=== PATIENT | female | born 1975 | race Caucasian/White ===

== ENCOUNTER 2017-07-08 05:45 | Day surgery (SDC) | payer MEDICAID ==
[~2017-07-08] VITALS: Ht 157.5 cm; Wt 85.3 kg
--- NOTE | ~2017-07-08 | OP ---
PATIENT NAME: KASH LYON MEDICAL RECORD: [id number] :79 LOCATION:D.OPS ADMISSION DATE: SURGEON: CHARLA LEA MD DATE OF OPERATION: 07/08/2017 PREOPERATIVE DIAGNOSES: 1. Internal hemorrhoids. 2. Anal skin tags. POSTOPERATIVE DIAGNOSES: 1. Internal hemorrhoids. 2. Anal skin tags. PROCEDURE: PPH stapled hemorrhoidectomy. SURGEON: Charla Lea MD REPORT OF PROCEDURE: The patient was placed in the jackknife prone position and the perianal region was prepped and draped in sterile fashion. Immediately you could see there were large redundant anal skin tags, especially on the anterior aspect of the anus. As I did a full inspection of the anal vault, there was noted to be internal hemorrhoids, which were not grossly enlarged. The PPH anoscope was then inserted and sutured down on all 4 sides using interrupted 3-0 silks. A 2-0 Prolene was used to make a pursestring just proximal to the dentate line. The PPH stapler was inserted and after we inspected the vaginal wall to assure there was no tenting of the tissues, then the stapler was fired. The patient had a good ring of tissue, which was removed. Staple line was inspected and there was no sign of any surgical bleeding. We irrigated out the anus and assured there was no bleeding. The PPH anoscope was then removed and we inspected the anal skin tags. These had been pulled down nicely with the PPH stapler and were not nearly as redundant as they had been preoperatively. The decision was made to just leave these alone. A piece of Gelfoam dipped in [place] was then placed into the anus and dressing was applied. COMPLICATIONS: None. CONDITION: Stable. ANESTHESIA: General endotracheal. BLOOD LOSS: Minimal. TRANSINT:[id number] Voice Confirmation ID: [id number] DOCUMENT ID: [id number] CHARLA LEA MD at 1031 CC: WILMAR KABA DO [id number] DICTATION DATE: 07/08/17 0922 [employer]MINAL [employer] SUPERVISOR: 07/08/17 1436 [facility] 07/08/17 [place] [address]
[2017-07-08 06:21] LABS: EOSINOPHILS 2.8 % (0-7); HEMOGLOBIN 16.5 g/dL (12-16); IMMATURE GRANULOCYTES 0.4 % (0-5); LYMPHOCYTES 23.5 % (15-50); MCH 31.9 pg (26.0-34.0); MCHC 34.4 g/dL (31.0-37.0); MCV 92.8 fL (80.0-100.0); MEAN PLATELET VOLUME 10.3 fL (7.4-10.4); MONOCYTES 10.1 % (2-11); NEUTROPHILS 62.2 % (40-80); PLATELET COUNT 298 10x3/uL (130-400); RBC 5.17 10x6/uL (4.00-5.40); RDW 12.7 % (11.5-14.5)
[2017-07-08 06:31] LABS: ANION GAP 10.6 mmol/L (8-16); CARBON DIOXIDE 31.5 mmol/L (21.0-32.0); POTASSIUM - SERUM 4.1 mmol/L (3.5-5.1)
[2017-07-08 06:35] VITALS: BP 107/78; Ht 157.5 cm; Wt 85.3 kg
[2017-07-08] MEDS ORDERED: HYDROCODONE-APA1 TAB PO (09:17)
== END 2017-07-08 11:30 | disposition home or self-care (01) ==
LOC: D.OPS 05:45 → D.PAN 08:00 → D.OPS 08:15
PROVIDERS: Surgery
DX: K64.8 Other hemorrhoids (principal); K64.4 Residual hemorrhoidal skin tags; Z01.812 Encounter for preprocedural laboratory examination